=== PATIENT | male | born 1965 | race African-American/Black ===

== ENCOUNTER → 2019-01-06 | Outpatient (CLI) | payer MEDICAID, SELFPAY ==
--- NOTE | 2019-01-06 16:44 | VDLE_ITS ---
Reason For Study: DVT RIGHT LEFT GSV is normal. GSV is normal. CFV is compressible, spontaneous, phasic, CFV is compressible, spontaneous, phasic, competent and demonstrates normal competent, and demonstrates normal augmentation. augmentation. FV is compressible, spontaneous, phasic, FV is compressible, spontaneous, phasic, competent and demonstrates normal competent and demonstrates normal augmentation. augmentation. POP V is compressible, spontaneous, phasic, POP V is compressible, spontaneous, phasic, competent and demonstrates normal competent and demonstrates normal augmentation. augmentation. T/P Trunk is compressible. T/P Trunk is compressible. PTV is compressible. PTV is compressible. RT PerV is compressible. LT PerV is compressible. Procedure Exam performed in department. A preliminary report was called and/or faxed to [facility]. Interpretation Summary Deep veins of the lower extremities are bilaterally patent and compressible segmentally. There is no evidence of deep vein thrombosis on either side. Valvular competence appears intact within the proximal deep venous systems bilaterally. The greater saphenous veins appear bilaterally patent and compressible segmentally. Ordering Physician: David Montano Referring Physician: David Montano Performed By: Cortney Barone RVT
[2019-01-06 18:02] LABS: BUN 20 mg/dL (7-18); Creatinine, Serum 1.42 mg/dL (0.70-1.30); Glucose 179 mg/dL (74-106)
[2019-01-06 18:03] LABS: ALB/GLOB Ratio 1.1 RATIO (0.9-2.4); AST(SGOT) 17 U/L (15-37); Alanine Aminotransfer ALT/SGPT 48 U/L (16-61); Albumin, Serum 3.2 g/dL (3.2-5.0); Alkaline Phosphatase 55 U/L (45-117); Anion Gap 5 (5-15); BUN/Creat Ratio 14.1 RATIO (10-20); Calcium,Total 8.6 mg/dL (8.5-10.1); Chloride 104 mmol/L (98-107); EST Glomerular Filtration Rate 56 mL/min (>60); Est Glom Filt Rate - Afr Amer 67 mL/min (>60); Potassium 3.8 mmol/L (3.5-5.1); Protein, Total 6.2 g/dL (6.4-8.2); Sodium Level 140 mmol/L (136-145)
[2019-01-06 18:21] LABS: Absolute Neutrophil Count 3.8 X10^3/uL (2.0-7.7); Basophil# 0.01 X10^3/uL; Basophil% 0.2 % (0-1); Hematocrit 34.9 % (40-54); Hemoglobin 10.4 g/dl (13.0-16.5); Lymphocyte % 15.4 % (19-41); Mean Corp Hgb Conc 29.8 g/gl (32-36); Mean Corpuscular Hgb 25.5 pg (27.0-32.0); Mean Corpuscular Volume 85.5 fL (80-94); Monocyte# 0.04 X10^3/uL; Monocyte% 0.9 % (0-10); Neutrophil # 3.78 X10^3/uL (2.7-7.7); Neutrophil % 83.1 % (47-70); Platelet Count 87 K/mm3 (150-450); RBC Distribution Width CV 21.5 % (11.6-14.6); RBC Distribution Width SD 66.8 fl (35.1-43.9); Red Blood Count 4.08 M/mm3 (4.6-6.2); White Blood Count 4.6 K/mm3 (4.4-11.0)
[2019-01-06 18:24] LABS: POSITIVE COUNT NO; POSITIVE DIFFERENTIAL NO; POSITIVE MORPHOLOGY YES
[2019-01-06 18:25] LABS: Differential Indicated SCAN CRITERIA MET
[2019-01-06 18:46] LABS: Differential Comment SCANNED
== END | disposition home or self-care (01) ==
PROVIDERS: Family Provider Family Medicine; PCP Family Medicine; Referring Provider Family Medicine; Visit Provider Family Medicine
DX: R60.9 Edema, unspecified (principal)
CPT/HCPCS: 36415; 80053; 85025; 93970

== ENCOUNTER 2019-01-14 09:21 | Outpatient (RCR) | payer MEDICAID, MEDICARE, SELFPAY | END 2019-01-14 23:59 | LOC: WC 09:21 | PROVIDERS: Family Provider Family Medicine; PCP Family Medicine; Visit Provider Surgery | DX: Z09 Encounter for follow-up examination after completed treatment for conditions other than malignant neoplasm (principal) ==

== ENCOUNTER 2019-03-21 16:54 | Emergency (ER) | payer MEDICARE, SELFPAY ==
[2019-03-21 16:55] VITALS: BP 142/75; PULSE 75; RESP 18; TEMP 37.1; O2SAT 99; BMI 33.4
--- NOTE | 2019-03-21 17:35 | US_ITS ---
STUDY: VENOUS DOPPLER ULTRASOUND - LEFT LOWER EXTREMITY REASON FOR EXAM: Male, 53 years old. Swelling TECHNIQUE: Ultrasound evaluation of the deep vein system to include weinberg-scale imaging and compression was performed. Weinberg-scale imaging and Doppler sonographic evaluation, including duplex spectral analysis and qualitative color flow sonography, was performed. COMPARISON: None. FINDINGS: Common Femoral Vein: Normal compression, spontaneity and augmentation. Normal color Doppler. Common Femoral Vein/Greater Saphenous Junction: Normal compression, spontaneity and augmentation. Normal color Doppler. Deep Femoral Vein: Normal compression, spontaneity and augmentation. Normal color Doppler. Femoral Proximal: Normal compression, spontaneity and augmentation. Normal color Doppler. Femoral Middle: Normal compression, spontaneity and augmentation. Normal color Doppler. Femoral Distal: Normal compression, spontaneity and augmentation. Normal color Doppler. Popliteal Vein: Normal compression, spontaneity and augmentation. Normal color Doppler. Posterior Tibial Vein: Normal compression, spontaneity and augmentation. Normal color Doppler. Peroneal Vein: Normal compression, spontaneity and augmentation. Normal color Doppler. US/Venous Duplex Imag/Limited/Uni IMPRESSION: Normal venous Doppler ultrasound of the lower extremity. Electronically Signed: Steve Hayes, at 18:20 EDT Tel , Service support ,
[2019-03-21 18:11] LABS: Absolute Lymphocyte Count 0.71 X10^3/ul (0.83-4.51); Absolute Neutrophil Count 3.4 X10^3/uL (2.0-7.7); Basophil# 0.01 X10^3/uL; Basophil% 0.2 % (0-1); Differential Indicated SCAN CRITERIA MET; Hematocrit 32.5 % (40-54); Hemoglobin 9.7 g/dl (13.0-16.5); Lymphocyte # 0.71 X10^3/ul (4.0); Lymphocyte % 16.7 % (19-41); Mean Corp Hgb Conc 29.8 g/gl (32-36); Mean Corpuscular Hgb 28.4 pg (27.0-32.0); Monocyte# 0.08 X10^3/uL; Monocyte% 1.9 % (0-10); Neutrophil # 3.39 X10^3/uL (2.7-7.7); POSITIVE COUNT NO; POSITIVE DIFFERENTIAL NO; POSITIVE MORPHOLOGY YES; Platelet Count 79 K/mm3 (150-450); RBC Distribution Width CV 21.8 % (11.6-14.6); RBC Distribution Width SD 75.1 fl (35.1-43.9); Red Blood Count 3.42 M/mm3 (4.6-6.2); White Blood Count 4.2 K/mm3 (4.4-11.0)
[2019-03-21 18:39] LABS: International Normalized Ratio 1.1; Partial Thromboplast Time 23.2 Seconds (24.1-36.2); Prothrombin Time (Protime)PT. 13.9 SECONDS (11.7-14.9)
[2019-03-21 18:44] LABS: Anisocytosis 2+; Crenated RBC 1+; Differential Comment SCANNED; Hypochromasia 2+; Macrocytosis 1+; Ovalocyte 1+; Polychromasia 1+; Target Cells 1+
[2019-03-21 18:45] LABS: Platelet Estimate MOD DEC (ADEQ)
[2019-03-21 18:46] LABS: Absolute Nucleated RBC Count 0.63 10^3/uL (0-5); NRBC Flagged by Analyzer 14.8 % (0-5)
[2019-03-21 18:46] LABS: ALB/GLOB Ratio 1.2 RATIO (0.9-2.4); AST(SGOT) 22 U/L (15-37); Alanine Aminotransfer ALT/SGPT 48 U/L (16-61); Albumin, Serum 3.2 g/dL (3.2-5.0); Alkaline Phosphatase 51 U/L (45-117); Anion Gap 5 (5-15); BUN 26 mg/dL (7-18); BUN/Creat Ratio 17.6 RATIO (10-20); Calcium,Total 8.4 mg/dL (8.5-10.1); Chloride 110 mmol/L (98-107); Creatinine, Serum 1.48 mg/dL (0.70-1.30); EST Glomerular Filtration Rate 53 mL/min (>60); Est Glom Filt Rate - Afr Amer 64 mL/min (>60); Estimated Creatinine Clearance 57.13 ml/min; Globulin 2.6 g/dL (2.2-4.2); Glucose 138 mg/dL (74-106); Potassium 3.8 mmol/L (3.5-5.1); Protein, Total 5.8 g/dL (6.4-8.2); Sodium Level 142 mmol/L (136-145)
[2019-03-21 20:07] VITALS: BP 138/78; PULSE 76; RESP 18; O2SAT 97
--- NOTE | 2019-03-21 20:08 | ED.DCSUM_ITS ---
- ER Visit Summary Date of Service: 03/21/19 Chief Complaint: Leg swelling History of Present Illness: The patient is a 53 M with leg swelling for 1.5 weeks. Patient was referred to the ED for possible DVT. No history of DVT. He takes aspirin. No chest pain or shortness of breath. Physical Examination: Afebrile and vital signs unremarkable. Left lower extremity shows diffuse edema. Nontender. Neurovascular intact distally. Calf nontender. Good range of motion. Skin intact. Test Results: Labs stable. Ultrasound negative. Emergency Department Course and Treatment: Work-up was unremarkable. Patient advised to elevate. Return for any new or worsening issues. Follow-up with his outpatient doctor. Treatment Plan: As above Disposition: Discharge Impression: 1. Left lower extremity edema This note was generated with [employer] dictation software. It may contain incorrect words, spelling, and punctuation that were not noted in review of the chart prior to signing ED Disposition - Plan for ED Patient: Referrals: David Montano MD [Primary Care Provider] -
--- NOTE | 2019-03-21 20:09 | ED.DEP ---
ED Disposition - Plan for ED Patient: Instructions: PERIPHERAL EDEMA, Unilateral Referrals: David Montano MD [Primary Care Provider] -
[2019-03-26 09:35] LABS: Pathologist Review Reviewed
== END 2019-03-21 20:55 | disposition home or self-care (01) ==
LOC: ED 17:36
PROVIDERS: Emergency Provider Emergency Medicine; Family Provider Family Medicine; PCP Family Medicine
DX: R60.0 Localized edema (principal); Z79.82 Long term (current) use of aspirin; Z72.0 Tobacco use
CPT/HCPCS: 80053; 85025; 85610; 85730; 93971; 99283; A4216

== ENCOUNTER → 2019-07-28 13:19 | Outpatient (CLI) | payer MEDICARE, SELFPAY ==
[2019-07-28 13:41] LABS: International Normalized Ratio 2.3; Prothrombin Time (Protime)PT. 25.5 SECONDS (11.7-14.9)
== END ==
PROVIDERS: Family Provider Family Medicine; PCP Family Medicine; Referring Provider Family Medicine; Visit Provider Family Medicine
DX: I26.94 Multiple subsegmental thrombotic pulmonary emboli without acute cor pulmonale (principal)
CPT/HCPCS: 85610

== ENCOUNTER → 2019-11-19 | Outpatient (CLI) | payer MEDICARE, SELFPAY ==
[2019-11-19 16:09] LABS: International Normalized Ratio 1.3; Prothrombin Time (Protime)PT. 15.6 SECONDS (11.7-14.9)
== END | disposition home or self-care (01) ==
LOC: LABSPEC 15:43
PROVIDERS: PCP Family Medicine; Referring Provider Family Medicine; Visit Provider Family Medicine
DX: I26.94 Multiple subsegmental thrombotic pulmonary emboli without acute cor pulmonale (principal)
CPT/HCPCS: 85610

== ENCOUNTER → 2019-12-10 13:54 | Outpatient (CLI) | payer MEDICARE, MEDICAID, SELFPAY ==
[2019-12-10 14:11] LABS: International Normalized Ratio 3.2; Prothrombin Time (Protime)PT. 32.9 SECONDS (11.7-14.9)
== END ==
PROVIDERS: PCP Family Medicine; Referring Provider Family Medicine; Visit Provider Family Medicine
DX: I26.94 Multiple subsegmental thrombotic pulmonary emboli without acute cor pulmonale (principal)
CPT/HCPCS: 85610

== ENCOUNTER → 2019-12-17 | Outpatient (CLI) | payer MEDICARE, MEDICAID, SELFPAY | END | disposition home or self-care (01) | PROVIDERS: PCP Family Medicine; Referring Provider Family Medicine; Visit Provider Family Medicine | DX: I26.94 Multiple subsegmental thrombotic pulmonary emboli without acute cor pulmonale (principal) ==

== ENCOUNTER → 2020-01-02 | Outpatient (CLI) | payer MEDICARE, MEDICAID, SELFPAY ==
[2020-01-02 12:59] LABS: International Normalized Ratio 2.7
== END | disposition home or self-care (01) ==
LOC: LABSPEC 12:31
PROVIDERS: PCP Family Medicine; Referring Provider Family Medicine; Visit Provider Family Medicine
DX: I26.94 Multiple subsegmental thrombotic pulmonary emboli without acute cor pulmonale (principal)
CPT/HCPCS: 85610

== ENCOUNTER → 2020-02-04 15:15 | Outpatient (CLI) | payer MEDICARE, MEDICAID, SELFPAY ==
[2020-02-04 16:15] LABS: International Normalized Ratio 2.1; Prothrombin Time (Protime)PT. 23.3 SECONDS (11.7-14.9)
== END ==
PROVIDERS: PCP Family Medicine; Visit Provider Family Medicine
DX: I26.94 Multiple subsegmental thrombotic pulmonary emboli without acute cor pulmonale (principal)
CPT/HCPCS: 85610

== ENCOUNTER → 2020-04-07 15:05 | Outpatient (CLI) | payer MEDICARE, MEDICAID, SELFPAY ==
[2020-04-07 15:56] LABS: International Normalized Ratio 2.1; Prothrombin Time (Protime)PT. 23.4 SECONDS (11.7-14.9)
== END ==
PROVIDERS: PCP Family Medicine; Referring Provider Family Medicine; Visit Provider Family Medicine
DX: Z86.711 Personal history of pulmonary embolism (principal)
CPT/HCPCS: 85610